=== PATIENT | female | born 1950 | race Caucasian/White ===

== ENCOUNTER → 2017-10-06 | Outpatient (CLI) | payer MEDICARE, OTHER ==
--- NOTE | 2017-10-06 14:07 | PCVCIMAG ---
APPROVED REPORT Study performed: 10/06/2017 12:58:51 EXAM: Comprehensive 2D, Doppler, and color-flow Echocardiogram Patient Location: Echo lab Status: routine BSA: 2.17 HR: 83 bpmBP: 144/90 mmHg Rhythm: NSR Other Information Study Quality: Adequate Risk Factors: Cardiac Risk Factors: HTN, DM, Hyperlipidemia Indications Murmur 2D Dimensions LVEF(%): 39.00 (>50%) IVSd: 8.30 (7-11mm)LVOT Diam: 21.54 (18-24mm) LVDd: 52.64 mm PWd: 9.01 (7-11mm)Ascending Ao: 32.79 (22-36mm) LVDs: 42.60 (25-40mm) Left Atrium: 44.57 (27-40mm) Aortic Root: 32.30 mm LV Single Plane 4CH: 48.92 % LV Single Plane 2CH: 52.95 %Rivas's LVEF: 50.94 % Biplane EF: 51.6 % Volumes Left Atrial Volume (Systole) Single Plane 4CH: 83.84 mLSingle Plane 2CH: 59.54 mL LA ESV Index: 34.00 mL/m2 Aortic Valve AoV Peak Josiah.: 2.54 m/s AO Peak Gr.: 21.51 mmHgLVOT Max P.55 mmHg AO Mean Gr.: 11.44 mmHgLVOT Mean P.86 mmHg AO V2 Mean: 1.62 m/sLVOT Max V: 0.94 m/s AO V2 VTI: 58.62 cmLVOT Mean V: 0.65 m/s VITO (VTI): 1.45 [id number] V1 VTI: 23.29 cm VITO Vmax: 1.35 cm2 SV (LVOT): 84.83 mL Mitral Valve E/A Ratio: 0.6 MV Decel. Time: 209.48 ms MV E Max Josiah.: 0.50 m/s MV A Josiah.: 0.79 m/s IVRT: 121.11 ms Pulmonary Valve PV Peak Josiah.: 1.23 m/sPV Peak Gr.: 6.04 mmHg Pulmonary Vein P Vein S: 0.57 m/sP Vein A: 0.35 m/s P Vein D: 0.63 m/sP Vein A Dur.: 145.3 msec P Vein S/D Ratio: 0.90 Tricuspid Valve TR Peak Josiah.: 1.96 m/s TR Peak Gr.: 15.31 mmHg Left Ventricle The left ventricle is normal size. There is normal LV segmental wall motion. There is normal left ventricular wall thickness. The left ventricular systolic function is normal. The left ventricular ejection fraction is within the normal range. LVEF is 50-55%. Grade I - abnormal relaxation pattern. Right Ventricle The right ventricle is normal size. The right ventricular systolic function is normal. Atria Left atrium is mildly dilated. The right atrium size is normal. Aortic Valve The aortic valve is mildly sclerotic. No aortic regurgitation is present. There is mild valvular aortic stenosis. Calculated aortic valve area is 1.4 cm2 with maximum pressure gradient of 26 mmHg and mean pressure gradient of 11 mmHg. Mitral Valve The mitral valve is normal in structure. Mild mitral regurgitation. No evidence of mitral valve stenosis. Tricuspid Valve The tricuspid valve is normal in structure. Trace tricuspid regurgitation with PAP of 22 mmHg. Pulmonic Valve The pulmonary valve is normal in structure. There is no pulmonic valvular regurgitation. Great Vessels The aortic root is normal in size. IVC is normal in size and collapses with >50% inspiration Pericardium There is no pericardial effusion. <Conclusion> The left ventricle is normal size. The left ventricular systolic function is normal. Grade I - abnormal relaxation pattern. The right ventricle is normal size. Left atrium is mildly dilated. There is mild valvular aortic stenosis. Calculated aortic valve area is 1.4 cm2 with maximum pressure gradient of 26 mmHg and mean pressure gradient of 11 mmHg. Mild mitral regurgitation. Trace tricuspid regurgitation with PAP of 22 mmHg.
== END | disposition home or self-care (01) ==
LOC: PCVCIMAG 12:48
PROVIDERS: ATTEND Internal Medicine Cardiovascular Disease
DX: I10 Essential (primary) hypertension (principal); R06.09 Other forms of dyspnea; I35.0 Nonrheumatic aortic (valve) stenosis; E78.00 Pure hypercholesterolemia, unspecified; R01.1 Cardiac murmur, unspecified; Z79.82 Long term (current) use of aspirin; Z79.899 Other long term (current) drug therapy
CPT/HCPCS: 93005; 93306; G0463

== ENCOUNTER → 2017-11-17 | Outpatient (CLI) | payer MEDICARE, OTHER | END | disposition home or self-care (01) | LOC: PCVCIMAG 09:50 | DX: I10 Essential (primary) hypertension (principal); R06.09 Other forms of dyspnea; I35.0 Nonrheumatic aortic (valve) stenosis; E78.00 Pure hypercholesterolemia, unspecified; Z79.899 Other long term (current) drug therapy; Z79.82 Long term (current) use of aspirin | CPT/HCPCS: 93325; 93351; G0463 ==

== ENCOUNTER → 2018-11-16 | Outpatient (CLI) | payer MEDICARE, OTHER ==
--- NOTE | 2018-11-16 11:12 | PCVCIMAG ---
APPROVED REPORT Study performed: 11/16/2018 10:09:18 EXAM: Comprehensive 2D, Doppler, and color-flow Echocardiogram Patient Location: Echo lab Room #: 2Status: routine BSA: 2.15 HR: 90 bpmBP: 130/76 mmHg Rhythm: NSR Other Information Study Quality: Adequate Risk Factors: Cardiac Risk Factors: HTN, Hyperlipidemia, DM Indications Aortic Valve Disease Diabetes Dyspnea Hypertension/HDD 2D Dimensions IVSd: 11.64 (7-11mm)LVOT Diam: 23.12 (18-24mm) LVDd: 51.18 mm PWd: 9.94 (7-11mm)Ascending Ao: 30.27 (22-36mm) LVDs: 34.16 (25-40mm) Left Atrium: 41.39 (27-40mm) Aortic Root: 27.49 mm LV Single Plane 4CH: 54.53 % LV Single Plane 2CH: 62.52 % Biplane EF: 58.8 % Volumes Left Atrial Volume (Systole) Single Plane 4CH: 36.52 mLSingle Plane 2CH: 46.29 mL Biplane LA Volume: 44.00 mLLA ESV Index: 21.00 mL/m2 Aortic Valve AoV Peak Josiah.: 2.41 m/s AO Peak Gr.: 22.81 mmHgLVOT Max P.58 mmHg AO Mean Gr.: 14.70 mmHgLVOT Mean P.70 mmHg AO V2 Mean: 1.87 m/sLVOT Max V: 0.80 m/s AO V2 VTI: 45.28 cmLVOT Mean V: 0.62 m/s VITO (VTI): 1.54 [id number] V1 VTI: 16.63 cm VITO Vmax: 1.40 cm2 SV (LVOT): 69.75 mL Mitral Valve E/A Ratio: 0.5 MV Decel. Time: 97.36 ms MV E Max Josiah.: 0.58 m/s MV A Josiah.: 1.13 m/s TDI E/Lateral E': 9.67E/Medial E': 11.60 Medial E' Josiah.: 0.05 m/s Lateral E' Josiah.: 0.06 m/s Pulmonary Valve PV Peak Josiah.: 1.29 m/sPV Peak Gr.: 6.68 mmHg Tricuspid Valve TR Peak Josiah.: 1.79 m/s TR Peak Gr.: 12.86 mmHg TV Vmax: 0.56 m/sPA Pressure: 20.00 mmHg Left Ventricle The left ventricle is normal size. There is normal LV segmental wall motion. There is normal left ventricular wall thickness. Left ventricular systolic function is normal. The left ventricular ejection fraction is within the normal range. LVEF is 55-60%. Grade I - abnormal relaxation pattern. Right Ventricle The right ventricle is normal size. The right ventricular systolic function is normal. Atria The left atrium size is normal. The right atrium size is normal. Aortic Valve Aortic valve is trileaflet. Aortic valve leaflets are mildly sclerotic with decreased opening. No aortic regurgitation is present. Mild aortic stenosis. Highest mean aortic valve gradient is _15_mmHg. Peak aortic valve gradient is 23_mmHg. Calculated VITO by the continuity equation is 1.6_cm2. Mitral Valve The mitral valve is normal in structure. Mild mitral regurgitation. No evidence of mitral valve stenosis. Tricuspid Valve The tricuspid valve is normal in structure. Trace to mild tricuspid regurgitation. Pulmonic Valve The pulmonary valve is normal in structure. There is no pulmonic valvular regurgitation. Great Vessels The aortic root is normal in size. The ascending aorta is normal in size. Aortic arch is normal in caliber. IVC is normal in size and collapses >50% with inspiration. Pericardium There is no pericardial effusion. There is no pleural effusion. <Conclusion> The left ventricle is normal size. There is normal left ventricular wall thickness. Left ventricular systolic function is normal. Grade I - abnormal relaxation pattern. The right ventricle is normal size. The left atrium size is normal. Mild aortic stenosis. Mild mitral regurgitation. Trace to mild tricuspid regurgitation.
== END | disposition home or self-care (01) ==
LOC: PCVCIMAG 10:03
PROVIDERS: ATTEND Internal Medicine Cardiovascular Disease
DX: I08.0 Rheumatic disorders of both mitral and aortic valves (principal); I10 Essential (primary) hypertension; E78.00 Pure hypercholesterolemia, unspecified; R06.09 Other forms of dyspnea; R60.9 Edema, unspecified; E11.9 Type 2 diabetes mellitus without complications; R01.1 Cardiac murmur, unspecified; Z79.82 Long term (current) use of aspirin
CPT/HCPCS: 93005; 93306; G0463